=== PATIENT | male | born 1970 | race Caucasian/White ===

== ENCOUNTER → 2024-01-07 | Outpatient (CLI) | payer BC, SELFPAY ==
[2024-01-07 08:14] LABS: Collection Type, Urine Clean Catch
[2024-01-07 08:40] LABS: Glucose Estimated Average 108 mg/dL (80-131); Hemoglobin A1C 5.4 % Hgb (4.8-6.0)
[2024-01-07 08:41] LABS: Basophils # (Auto) 0.1 Thou/mm3 (0.0-0.2); Basophils % (Auto) 1 % (0-2.5); Eosinophils # (Auto) 0.3 Thou/mm3 (0.0-0.5); Eosinophils % (Auto) 5 % (0-10); Hematocrit 46.7 % (41.0-53.0); Hemoglobin 15.1 g/dL (13.5-16.0); Immature Granulocytes % (Auto) 0 % (0-0); Immature Granulocytes Auto 0.01 Thou/mm3 (0.00-0.00); Lymphocytes # (Auto) 1.7 Thou/mm3 (1.0-4.8); Lymphocytes % (Auto) 25 % (10-50); Mean Corpuscular HGB Conc 32.3 g/dl (31.0-37.0); Mean Corpuscular Hemoglobin 29.9 pg (25.0-35.0); Mean Corpuscular Volume 93 fL (80-100); Monocytes # (Auto) 0.6 Thou/mm3 (0.0-0.8); Monocytes % (Auto) 9 % (0-12); Neutrophils # (Auto) 3.9 Thou/mm3 (1.8-7.7); Neutrophils % (Auto) 59 % (37-80); Nucleated Red Blood Cell % 0 /100 WBC (0); Platelet Count 233 Thou/mm3 (140-440); RDW Standard Deviation 42.9 fL (35.1-43.9); Red Blood Count 5.05 Miln/mm3 (4.50-5.90); White Blood Count 6.5 Thou/mm3 (3.8-10.6)
[2024-01-07 08:42] LABS: Prostate Specific Antigen 0.41 ng/mL (0-4.00)
[2024-01-07 08:47] LABS: Bilirubin,Urine Negative (Negative); Blood,Urine Negative (Negative); Clarity,Urine Clear (Clear/Hazy); Color,Urine Yellow (Lt Yel-Yel); Glucose, Urine Negative (Negative); Ketones,Urine Negative (Negative); Leukocyte Esterase,Urine Negative (Negative); Nitrite,Urine Negative (Negative); Protein,Urine Negative (Neg - Trace); RBC,Urine 2 /hpf (0-3); Specific Gravity,Urine 1.031 (1.001-1.035); Squamous Epithelial Cell,Urine < 1 /hpf (0-5); Urobilinogen,Urine Negative mg/dL (0.0-1.0); WBC,Urine < 1 /hpf (0-5)
[2024-01-07 08:48] LABS: Vitamin B12 550 pg/mL (211-911)
[2024-01-07 08:49] LABS: Alanine Aminotransferase 21 U/L (10-49); Albumin, Serum 4.4 gm/dL (3.5-5.0); Albumin/Globulin Ratio 1.8 (1.2-2.2); Alkaline Phosphatase 91 U/L (46-116); Anion Gap 4 (7-16); Aspartate Amino Transferase 29 U/L (0-34); BUN/Creatinine Ratio 16 Ratio (12-20); Bilirubin,Total 0.4 mg/dL (0.3-1.2); Blood Urea Nitrogen 18 mg/dL (9-23); Calcium 9.8 mg/dL (8.3-10.6); Calcium (Corrected) 9.8 mg/dL (8.5-10.1); Carbon Dioxide 29.3 mMol/L (20.0-31.0); Cardiac Risk Estimate 4.1 RATIO (4.0-6.7); Chloride 108 mMol/L (98-107); Cholesterol 216 mg/dL (132-200); Creatinine (Component) 1.1 mg/dL (0.6-1.3); Globulin 2.5 gm/dL (2.3-3.5); Glucose 108 mg/dL (74-106); HDL Cholesterol 53 mg/dL (40-60); LDL Cholesterol,Calculated 150 mg/dL (0-130); Osmolality,Calculated 284 (275-295); Potassium 4.6 mMol/L (3.4-5.1); Sodium 141 mMol/L (136-145); Thyroid Stimulating Hormone 4.78 uIU/mL (0.55-4.78); Total Protein 6.9 gm/dL (5.7-8.2); Triglycerides 64 mg/dL (30-150); Uric Acid 6.5 mg/dL (3.7-9.2); eGFR > 60 See Note
[2024-01-18 06:31] LABS: Testosterone, Free,Dialysis 39.3 pg/mL (35.0-155.0); Testosterone, Total, Dialysis 398 ng/dL (250-1100)
== END | disposition home or self-care (01) ==
LOC: COPL 07:05
PROVIDERS: PCP Internal Medicine; Referring Provider Internal Medicine; Visit Provider Internal Medicine
DX: Z00.00 Encounter for general adult medical examination without abnormal findings (principal)
CPT/HCPCS: 36415; 80053; 80061; 81001; 82306; 82607; 83036; 84153; 84402; 84403; 84443; 84550; 85025

== ENCOUNTER 2024-06-27 23:04 | Emergency (ER) | payer BC, SELFPAY ==
[2024-06-27 23:07] VITALS: BMI 30.4
--- NOTE | 2024-06-27 23:07 | EKG_ITS ---
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
[2024-06-27 23:11] VITALS: BP 138/84; PULSE 63; RESP 18; TEMP 37.1; O2SAT 98
--- NOTE | 2024-06-27 23:23 | PD.EDRME ---
Rapid Medical Screening Exam RME Arrival date/time: 06/27/24 23:04 Chief Complaint: Chest Pain Time Seen by Provider: 06/27/24 23:17 Vital signs: Vital Signs Temperature 98.8 F 06/27/24 23:11 Pulse Rate 63 06/27/24 23:11 Respiratory Rate 18 06/27/24 23:11 Blood Pressure 138/84 H 06/27/24 23:11 Pulse Oximetry (%) 98 06/27/24 23:11 Oxygen Delivery Method Room Air 06/27/24 23:11 Vital signs reviewed by provider: Yes RME Narrative: 54-year-old male presents to the ED with a complaint of anterior chest pain. The pain came on at rest at approximately 9:15 PM which is described as a sharp pain that radiates to his mid back and up into the right side of his neck and right ear. At its worst it was a 7/10 and is currently a 2/10. Initial EKG shows normal sinus rhythm with no STEMI. Labs and chest x-ray ordered. I have greeted and performed a focused initial assessment of this patient. A comprehensive ED assessment and evaluation of the patient, analysis of all test results, and completion of the medical decision making process will be conducted by additional ED providers.
--- NOTE | 2024-06-27 23:29 | XR_ITS ---
Examination: PA lateral chest 2 views Technique: Upright PA lateral chest 2 views Exam date and time: June 28, 2024 12:03 AM Indications: Onset chest pain today. Findings: Normal heart size. Lungs are clear. The osseous structures are intact. Impression: No active disease
[2024-06-27] MEDS: ASPIRIN 81 MG CHEW 324 MG PO (23:43)
[2024-06-28 00:19] LABS: Basophils # (Auto) 0.1 Thou/mm3 (0.0-0.2); Basophils % (Auto) 1 % (0-2.5); Eosinophils # (Auto) 0.2 Thou/mm3 (0.0-0.5); Eosinophils % (Auto) 3 % (0-10); Hematocrit 43.3 % (41.0-53.0); Hemoglobin 14.8 g/dL (13.5-16.0); Immature Granulocytes % (Auto) 0 % (0-0); Immature Granulocytes Auto 0.02 Thou/mm3 (0.00-0.00); Lymphocytes % (Auto) 28 % (10-50); Mean Corpuscular HGB Conc 34.2 g/dl (31.0-37.0); Mean Corpuscular Hemoglobin 30.1 pg (25.0-35.0); Mean Corpuscular Volume 88 fL (80-100); Monocytes # (Auto) 0.6 Thou/mm3 (0.0-0.8); Monocytes % (Auto) 8 % (0-12); Neutrophils # (Auto) 4.3 Thou/mm3 (1.8-7.7); Neutrophils % (Auto) 59 % (37-80); Nucleated Red Blood Cell % 0 /100 WBC (0); Platelet Count 225 Thou/mm3 (140-440); RDW Standard Deviation 41.7 fL (35.1-43.9); Red Blood Count 4.91 Miln/mm3 (4.50-5.90); White Blood Count 7.2 Thou/mm3 (3.8-10.6)
[2024-06-28 00:22] LABS: Collection Type, Urine Clean Catch; Squamous Epithelial Cell,Urine 0 /hpf (0-5)
[2024-06-28 00:23] LABS: Partial Thromboplastin Time 25.7 Seconds (22.0-36.0); Prothrombin Time 10.8 Seconds (9.0-12.2)
[2024-06-28 00:26] LABS: B-Type Natriuretic Peptide < 20 pg/mL (0-100)
[2024-06-28 00:27] LABS: Alanine Aminotransferase 14 U/L (10-49); Albumin, Serum 4.3 gm/dL (3.5-5.0); Albumin/Globulin Ratio 1.6 (1.2-2.2); Alkaline Phosphatase 81 U/L (46-116); Anion Gap 8 (7-16); Aspartate Amino Transferase 29 U/L (0-34); BUN/Creatinine Ratio 11 Ratio (12-20); Bilirubin,Total 0.4 mg/dL (0.3-1.2); Blood Urea Nitrogen 16 mg/dL (9-23); Calcium 9.3 mg/dL (8.3-10.6); Calcium (Corrected) 9.3 mg/dL (8.5-10.1); Carbon Dioxide 28.4 mMol/L (20.0-31.0); Chloride 108 mMol/L (98-107); Creatinine (Component) 1.4 mg/dL (0.6-1.3); Estimated Creatinine Clearance 71.8 mL/min (>60); Globulin 2.7 gm/dL (2.3-3.5); Glucose 104 mg/dL (74-106); LDH (Lactate Dehydrogenase) 187 U/L (120-246); Magnesium 2.2 mg/dL (1.6-2.6); Osmolality,Calculated 288 (275-295); Sodium 144 mMol/L (136-145); Troponin I < 0.020 ng/mL (0.0-0.045); eGFR > 60 See Note
[2024-06-28 00:32] LABS: Bilirubin,Urine Negative (Negative); Blood,Urine Negative (Negative); Clarity,Urine Clear (Clear/Hazy); Color,Urine Lt-Yellow (Lt Yel-Yel); Glucose, Urine Negative (Negative); Ketones,Urine Negative (Negative); Leukocyte Esterase,Urine Negative (Negative); Nitrite,Urine Negative (Negative); PH,Urine 6.5 (5.0-7.0); Protein,Urine Negative (Neg - Trace); RBC,Urine 4 /hpf (0-3); Specific Gravity,Urine 1.029 (1.001-1.035); Urobilinogen,Urine Negative mg/dL (0.0-1.0); WBC,Urine < 1 /hpf (0-5)
--- NOTE | 2024-06-28 02:03 | PD.EDCHEST ---
ED Chest Pain RME/HPI General Chief Complaint: Chest Pain Stated Complaint: CHEST PAIN Time Seen by Provider: 06/27/24 23:17 Arrival date/time: 06/27/24 23:04 RME / HPI RME / HPI narrative: 54-year-old male presents to the ED with a complaint of anterior chest pain. The pain came on at rest at approximately 9:15 PM which is described as a sharp pain that radiates to his mid back and up into the right side of his neck and right ear. At its worst it was a 7/10 and is currently a 2/10. Initial EKG shows normal sinus rhythm with no STEMI. Labs and chest x-ray ordered. I have greeted and performed a focused initial assessment of this patient. A comprehensive ED assessment and evaluation of the patient, analysis of all test results, and completion of the medical decision making process will be conducted by additional ED providers. DR. NOEMI VICENTE ED EVALUATION: 54 y/o male presents to ED c/o sharp chest pain that radiates from the back, the front, then up to the right side of the neck x approximately 5 hours ago. Pain lasted about 2 hours and resolved here in the emergency department. Pain is worse with deep breaths. Reports similar incident occurred one month ago that resolved after 3 hours. No other complaints expressed at this time. Related Data Allergies Allergy/AdvReac Type Severity Reaction Status Date / Time NKA* Allergy Uncoded 06/27/24 23:05 Review of Systems Review of Systems Systems Reviewed: All systems reviewed, normal except as documented Past Medical History Social History SMOKING STATUS: Never smoker ED Exam Narrative Physical exam: GENERAL APPEARANCE: alert and oriented x 4, well-developed, well-nourished, no acute distress VITALS: All vitals were reviewed and the pulse ox is 97% on room air, which is normal according to my interpretation. HEENT: Normocephalic, atraumatic; pupils equal, round, reactive to light; EOMI; mucous membranes pink, moist; oropharynx clear NECK: Supple LUNGS: CTABL; no wheezes, no rales, no rhonchi HEART: Regular rate, regular rhythm; normal S1, S2; no murmurs ABDOMEN: non distended; normal BS; soft, no tenderness, no guarding, no rebound; no masses, no organomegaly, no hernia BACK: no CVA tenderness EXTREMITIES: atraumatic; no edema NEUROLOGIC: awake; alert and oriented x4; cranial nerves II-XII grossly intact; no focal sensory or motor deficits PSYCHIATRIC: appropriate mood and affect SKIN: warm, dry, normal color; no rashes Course Quality Measures none Orders Category Date Time Status EKG (ED ONLY) *Do not use* NOW Care 06/27/24 23:08 Completed EKG (ED Only) Stat Exams 06/27/24 23:07 Ordered EKG (ED Only) Urgent Exams 06/27/24 23:07 Draft XR chest 2V Stat Exams 06/27/24 23:29 Completed B-Type Natriuretic Peptide Stat Lab 06/27/24 23:40 Completed CBC Stat Lab 06/27/24 23:40 Completed Comprehensive Metabolic Panel Stat Lab 06/27/24 23:40 Completed LDH (Lactate Dehydrogenase) Stat Lab 06/27/24 23:40 Completed Magnesium Stat Lab 06/27/24 23:40 Completed Partial Thromboplastin Time Stat Lab 06/27/24 23:40 Completed Prothrombin Time with INR Stat Lab 06/27/24 23:40 Completed Troponin I Stat Lab 06/27/24 23:40 Completed Troponin I Stat Lab 06/28/24 02:28 Completed Urinalysis Stat Lab 06/28/24 00:02 Completed Aspirin Chew Med 06/27/24 23:30 Discontinued 324 mg PO X1 ONE Famotidine Inj [Pepcid Inj] Med 06/28/24 02:27 Discontinued 20 mg IVP X1 ONE Ondansetron Inj [Zofran Inj] Med 06/28/24 02:27 Discontinued 4 mg IV X1 ONE mg Hyd/Al Hyd/Margaret Susp [Maalox Susp] Med 06/28/24 02:27 Discontinued 30 ml PO X1 ONE Vital Signs Vital signs: Vital Signs Temperature 98.8 F 06/27/24 23:11 Pulse Rate 63 06/27/24 23:11 Respiratory Rate 18 06/27/24 23:11 Blood Pressure 138/84 H 06/27/24 23:11 Pulse Oximetry (%) 98 06/27/24 23:11 Oxygen Delivery Method Room Air 06/27/24 23:11 Chest Pain MDM Narrative MDM Narrative:: Scribe Attestation: I, Isabelle Perez, am scribing for and in the presence of Dr. Gallegos. Initial and repeat troponins are normal. CXR is unremarkable. EKG does not show any signs of acute ischemia. Patient is stable to be discharged home. Provider Notation: Although this document has been carefully reviewed, there may still be some phonetic and other typographical errors. These errors are purely grammatical due to imperfections in the software program and should not be construed in any way to compromise the substance of the patient's medical care during this visit. Patient data External records reviewed:: [facility] previous records (No recent ED records available for review.) Clinical information provided by:: patient Social determinants that could affect healthcare access:: none Patient has the following chronic illnesses:: None reported How is presenting disease/condition affected by chronic disease/condition?: no chronic disease (None reported) Evaluation data The following diagnostics were reviewed and interpreted by me:: lab results, radiology exam(s) and EKG tracing(s) (2314: Normal sinus rhythm of 60 BPM, norm axis, no ectopy, no acute ischemia.) Lab and/or radiology exams considered but not ordered:: None Interpretation Summary: RADIOLOGY Patient: CHRISTINE JUNE. Record#: [id number] Birthdate: 1970 Age/Sex: 54 / M Location: [facility] Attending Dr: Ordering Physician: Krys Covarrubias PA-C Date of Service: 06/27/24 Procedure(s): XR chest 2V Accession Number(s): [id number] cc: Jimbo Kenney MD; NO PRIMARY/FAMILY,PHYSICIAN; Krys Covarrubias PA-C~ Examination: PA lateral chest 2 views Technique: Upright PA lateral chest 2 views Exam date and time: June 28, 2024 12:03 AM Indications: Onset chest pain today. Findings: Normal heart size. Lungs are clear. The osseous structures are intact. Impression: No active disease Dictated By: Jimbo Kenney MD Signed By:<Electronically signed by Jimbo Kenney MD in OV> 06/28/24 0008 Medications / Prescriptions Medications or Prescriptions considered but not ordered:: None Medication administrations:: Medication Administration History Discontinued Medications Al Hydrox/Mg Hydrox/Simethicone (Mg Hyd/Al Hyd/Margaret (Maalox Reg) Susp 30 Ml Udc) 30 ml PO X1 ONE Stop: 06/28/24 02:28 Last Admin: 06/28/24 02:32 Dose: Not Given Documented By: MC Non-Admin Reason: Discontinued Aspirin (Aspirin 81 Mg Chew) 324 mg PO X1 ONE Stop: 06/27/24 23:31 Last Admin: 06/27/24 23:43 Dose: 324 mg Documented By: Famotidine (Famotidine Inj 10 Mg/Ml Vial 2 Ml) 20 mg IVP X1 ONE Stop: 06/28/24 02:28 Last Admin: 06/28/24 02:32 Dose: Not Given Documented By: MC Non-Admin Reason: Discontinued Ondansetron HCl (Ondansetron Inj 2 Mg/Ml Inj 2 Ml) 4 mg IV X1 ONE; Protocol Stop: 06/28/24 02:28 Last Admin: 06/28/24 02:32 Dose: Not Given Documented By: MC Non-Admin Reason: Discontinued See above if any Consultations Consultation(s) initiated? (list below): No Diagnosis Chest Pain Differential Diagnosis: stable angina, unstable angina pectoris, atypical chest pain, costochondritis, chest pain, biliary colic and other (GERD) Most likely diagnosis given after review of the tests above:: see clinical impression below Admission Indicated Admission indicated?: not indicated Admission Request Was there a request for admission?: No Disposition Plan Disposition Plan: Discharge Discharge Attestation Discharge Attestation: The patient and all family members were given an opportunity to ask questions and understood the discharge instructions. Discharge instructions specifically effects, indications for sooner follow up or return to the emergency department, and the expected course of current diagnosis. Patient condition: Stable Discharge Plan Plan Patient Disposition: HOME (Self Care) Disposition Comment: Stable for discharge home Patient condition on transfer: Stable Prescriptions/Referrals Referrals: Keny Escobar MD [Physician] - In 1 week Problem List Clinical Impression: Chest pain Patient/Caregiver Discharge Instructions Discharge Activity: activity as tolerated Education Materials: ED Chest Pain, Uncertain Cause Additional Instructions: Please return to the emergency department if you have any worsening or any further medical problems and we will help you. Otherwise you should follow-up with your primary care doctor within the next several days We have given you the contact information for Dr. Escobar. He is our physician coding specialist on-call. Please give his office a call and make a follow-up appointment for some time in the next several days Print Language: Greek Stand Alone Forms: [employer] Award Info., Patient Portal Info Letter
[2024-06-28 02:21] VITALS: BP 130/79; PULSE 54; RESP 17; TEMP 36.6; O2SAT 97
[2024-06-28 03:08] LABS: Troponin I < 0.020 ng/mL (0.0-0.045)
[2024-06-28 03:36] VITALS: BP 110/70; PULSE 53; RESP 18; TEMP 36.7; O2SAT 94
[2024-06-28 04:02] VITALS: BP 104/72; PULSE 61; RESP 20; TEMP 36.7; O2SAT 97
== END 2024-06-28 04:03 | disposition home or self-care (01) ==
PROVIDERS: Physician Assistant; Emergency Provider Emergency Medicine
DX: R07.1 Chest pain on breathing (principal)
CPT/HCPCS: 36415; 71046; 80053; 81001; 83615; 83735; 83880; 84484; 85025; 85610; 85730; 93005; 99283; A9270

== ENCOUNTER → 2024-08-23 | Outpatient (CLI) | payer BC, SELFPAY ==
--- NOTE | 2024-08-23 10:57 | XR_ITS ---
Examination: Testicular sonography complete TECHNIQUE: Grayscale sonographic images testes, assessment arterial inflow venous outflow Doppler spectral analysis, flow analysis Date and time: August 23, 2024 1110 hours INDICATIONS: Left testicle pain 6 months worse today FINDINGS: Right testis 3.8 cm epididymis 13 mm Arterial flow testicle. No testicular mass Mild hydrocele Left testis 3.5 cm Epididymis 3.0 cm Mild left varicocele Arterial flow testicle. No testicular mass Mild hydrocele IMPRESSION: No testicular torsion or testicular mass Left epididymitis Mild left varicocele
== END | disposition home or self-care (01) ==
LOC: CDIM 10:52
PROVIDERS: PCP Internal Medicine; Referring Provider Internal Medicine; Visit Provider Internal Medicine
DX: N45.1 Epididymitis (principal); I86.1 Scrotal varices
CPT/HCPCS: 76870

== ENCOUNTER 2024-10-27 08:50 | Day surgery (SDC) | payer BC, SELFPAY ==
--- NOTE | 2024-10-26 11:11 | ESHP_ITS ---
RE: CHRISTINE JUNE : 1970 DATE OF ADMISSION: 10/27/2024 HISTORY OF PRESENT ILLNESS: A 54-year-old gentleman who was referred to me with a history of hurting in his testicle area. He has pain on the left testis area. The patient does not urinate at nighttime. Sometimes he has a hard time starting his urinary stream. PAST MEDICAL HISTORY: There is no history of diabetes mellitus. No history of hypertension. PAST SURGICAL HISTORY: Included vasectomy 20 years ago. SOCIAL HISTORY: He has 2 children. MEDICATIONS: None. ALLERGIES: NONE KNOWN. PHYSICAL EXAMINATION: HEENT: Normal. NECK: Supple. LUNGS: Clear. CARDIOVASCULAR: Heart sounds are normal. ABDOMEN: Soft without any organomegaly. GENITOURINARY: Phallus is normal. Testes are down in scrotum. There is a moderate-sized left varicocele. RECTAL: Examination reveals a moderately enlarged smooth prostate without any nodules. LABORATORY DATA: Ultrasound of the scrotum revealed a left varicocele. There was no testicular torsion or any testicular masses. IMPRESSION: 1. Left testicular pain. 2. Left varicocele, symptomatic. PLAN: Left varicocelectomy. Planned procedure, risks, and complications have been discussed with the patient. The patient has understood them and agreed to proceed. Thank you. DT: 10:11:20 TT: 11:09:00 Ref: [id number] - TID: [id number]
[2024-10-27] VITALS (10 sets, daily range): BP systolic 109–134; BP diastolic 65–91; PULSE 56–66; RESP 12–19; TEMP 36.2–37; O2SAT 96–100; BMI 30.5; BMI 30.4
[2024-10-27 10:09] LABS: Basophils # (Auto) 0.0 Thou/mm3 (0.0-0.2); Basophils % (Auto) 1 % (0-2.5); Eosinophils # (Auto) 0.1 Thou/mm3 (0.0-0.5); Eosinophils % (Auto) 1 % (0-10); Hematocrit 48.0 % (41.0-53.0); Hemoglobin 15.7 g/dL (13.5-16.0); Immature Granulocytes Auto 0.05 Thou/mm3 (0.00-0.00); Lymphocytes # (Auto) 1.7 Thou/mm3 (1.0-4.8); Lymphocytes % (Auto) 21 % (10-50); Mean Corpuscular HGB Conc 32.7 g/dl (31.0-37.0); Mean Corpuscular Hemoglobin 30.1 pg (25.0-35.0); Mean Corpuscular Volume 92 fL (80-100); Monocytes # (Auto) 0.7 Thou/mm3 (0.0-0.8); Monocytes % (Auto) 9 % (0-12); Neutrophils # (Auto) 5.6 Thou/mm3 (1.8-7.7); Neutrophils % (Auto) 69 % (37-80); Nucleated Red Blood Cell # 0.00 Thou/mm3 (0.00-0.00); Nucleated Red Blood Cell % 0 /100 WBC (0); Platelet Count 241 Thou/mm3 (140-440); RDW Standard Deviation 44.0 fL (35.1-43.9); Red Blood Count 5.22 Miln/mm3 (4.50-5.90); White Blood Count 8.2 Thou/mm3 (3.8-10.6)
[2024-10-27 10:23] LABS: Anion Gap 9 (7-16); BUN/Creatinine Ratio 8 Ratio (12-20); Blood Urea Nitrogen 9 mg/dL (9-23); Calcium 9.5 mg/dL (8.3-10.6); Carbon Dioxide 28.6 mMol/L (20.0-31.0); Chloride 103 mMol/L (98-107); Creatinine (Component) 1.2 mg/dL (0.6-1.3); Estimated Creatinine Clearance 83.9 mL/min (>60); Glucose 91 mg/dL (74-106); Osmolality,Calculated 279 (275-295); Potassium 3.8 mMol/L (3.4-5.1); Prostate Specific Antigen 0.47 ng/mL (0-4.00); Sodium 141 mMol/L (136-145); eGFR > 60 See Note
--- NOTE | 2024-10-27 12:11 | SUR.PHASEI ---
1205 patient is awake, alert, breathing unlabored, dressing to upper left groin dry with no bleeding, report received from Pepe Elder.
[2024-10-27] MEDS: HYDROmorphone INJ 2 MG/ML VIAL 0.4 MG IVP (12:27)
--- NOTE | 2024-10-27 12:35 | SUR.PHASEII ---
1235 report received from Cheri SANFORD, patient awake and laying in bed, shared pain 07/15 stating to feel better, breathing unlabored, vital signs stable, dressing intact; no bleeding noted, denies nausea
--- NOTE | 2024-10-27 13:14 | SUR.PHASEII ---
1314 Dr. Michael at bedside, patient verbal order-read back received from Tylenol 1000mg via IV, will place order in EMR and administer to patient per anesthesia order
[2024-10-27] MEDS: ACETAMINOPHEN IVPB 1,000 MG/100 ML VIAL 250 MG IV (13:16)
--- NOTE | 2024-10-27 13:45 | SUR.PHASEII ---
1345 Patient meets discharge criteria from recovery, awake and alert, breathing unlabored, vital signs stable, denies pain, dressing intact; no bleeding noted, drinking water; tolerating well, denies nausea, assisted with dressing into his clohting by his , discharge instructions given to patient and patients , signed discharge instructions. Patient given all his belongings prior to discharge, transported via wheelchair and left in a private vehicle.
--- NOTE | 2024-10-27 22:46 | ESOP_ITS ---
RE: CHRISTINE JUNE : 1970 DATE OF OPERATION: 10/27/2024 PREOPERATIVE DIAGNOSIS: Left varicocele with left testicular pain. 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 PROCEDURE PERFORMED: Left varicocelectomy and excision of the lipoma of the left spermatic cord. ANESTHESIA: General. INDICATION: The patient is a 54-year-old gentleman who was referred to me with a history of left testicular pain. He has a left-sided varicocele. Ultrasound confirmed the left-sided varicocele. The patient is symptomatic and wishes to have something done for this left-sided testicular pain, so he is now scheduled to have . Plan, procedure, risks, and complications have been discussed with the patient. The patient understood then and agreed to proceed. DESCRIPTION OF PROCEDURE: After the patient was brought to the operating table under adequate general anesthesia and supine position, parts were prepped and draped in the usual fashion. Left inguinoscrotal incision was then made approximately 7 cm long. Skin and subcutaneous tissues were incised. Hemostasis was obtained. External oblique aponeurosis was then opened in the direction of the incision opening the external ring. Spermatic cord structures were isolated on a quarter-inch [place] drain at the external ring. 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 The left spermatic cord was identified and a large left internal spermatic vein was identified, which was going towards the internal ring. At the internal ring, I put some clamps on the internal spermatic vein and the internal spermatic vein was cut. The ends were ligated with 3-0 silk sutures. Complete hemostasis was obtained. External oblique aponeurosis was then sutured with 3-0 Vicryl sutures. Sung's fascia was closed with continuous sutures of 3-0 chromic catgut. Skin was closed with alfonso. Local anesthetic was injected into the wound for the control of the postoperative pain. Sterile dressing was then applied. The patient was then transferred to the recovery room in a satisfactory condition and he tolerated the entire procedure well. Sponge count and needle count at the end of the procedure was found to be correct. Estimated blood loss was approximately 5 mL. DT: 12:38:35 TT: 16:03:00 Ref: [id number] - TID: [id number]
== END 2024-10-27 13:45 | disposition home or self-care (01) ==
PROVIDERS: PCP Internal Medicine; Referring Provider Surgery; Visit Provider Surgery
PROC: (CPT 55530; principal; 2024-10-27 10:45)
DX: I86.1 Scrotal varices (principal); D17.6 Benign lipomatous neoplasm of spermatic cord
CPT/HCPCS: 55530; 36415; 80048; 81001; 84153; 85025; A4217; A4649; J0131; J0690; J1100; J1171; J1885; J2704; J2765; J3010; J3490; A9270